=== PATIENT | male | born 1950 | race Caucasian/White ===

== ENCOUNTER 2024-11-07 13:42 | Outpatient (REF) | payer MEDICARE, SELFPAY ==
[2024-11-07 17:30] LABS: MANUAL DIFF FLAG NO
[2024-11-07 17:42] LABS: Hematocrit 37.8 % (42.0-52.0); Hemoglobin 13.0 g/dl (14.0-18.0); Imm Gran Abs Auto 0.01 X10*3/uL (0.00-0.03); Imm Gran Pct Auto 0.3 % (0.0-0.4); Lymphocytes Absolute Auto 1.3 X10*3/uL (1.2-4.9); Mean Corpuscular HGB Conc 34.4 g/dl (31.0-36.0); Mean Corpuscular Hemoglobin 33.3 pg (27.0-33.0); Mean Corpuscular Volume 96.9 fL (80.0-98.0); NRBC Abs Auto 0.000 X10*3/uL (0.0-0.012); NRBC Pct Auto 0.0 /100WBC (0.0-0.2); Platelet Count 169 X10*3/uL (160-400); Red Blood Count 3.90 X10*6/uL (4.60-5.80); White Blood Count 3.8 X10*3/uL (4.8-10.8)
[2024-11-07 18:00] LABS: Alanine Aminotransferase 69 U/L (0-40); Aspartate Amino Transferase 59 U/L (5-37); Estimated Glomerular Filt Rate > 60
[2024-11-08 04:38] LABS: HBS Num1 0.52 mIU/mL (0-7.99); HBc Num1 0.51 S/CO (0.00-0.79); HBsAGNum1 0.48 S/CO (0.00-0.99); Hepatitis B Surface Antigen Negative (Negative); ~HepC Num1 0.09 S/CO (0.00-0.79); ~Hepatitis B Surface Antibody NONREACTIVE (Nonreactive); ~Hepatitis C Antibody Nonreactive (Nonreactive)
== END 2024-11-07 13:43 | disposition home or self-care (01) ==
LOC: HO.HKASLDS 13:42
PROVIDERS: PCP Internal Medicine; Visit Provider Internal Medicine Rheumatology
DX: M06.00 Rheumatoid arthritis without rheumatoid factor, unspecified site (principal); Z51.81 Encounter for therapeutic drug level monitoring; Z11.59 Encounter for screening for other viral diseases; Z79.631 Long term (current) use of antimetabolite agent; Z79.899 Other long term (current) drug therapy; Z96.652 Presence of left artificial knee joint; Z72.89 Other problems related to lifestyle
CPT/HCPCS: 36415; 82565; 84450; 84460; 85025; 85652; 86140; 86704; 86706; 86803; 87340; 99212

== ENCOUNTER 2024-11-07 13:42 | Outpatient (AMB) | payer MEDICARE, SELFPAY ==
--- OUTSIDE RECORDS SUMMARY | 2024-05-21 05:45 | XMS_ITS ---
Author Organization [facility] Address [address] [facility] [address] [place] [address] Care Team Providers Care Internal Control Specialist Name Role Phone Bri Li Primary Care Provider BRI Lawrence Unavailable [phone] REASON FOR VISIT 4wk Encounters Encounter Location Date Provider Diagnosis [facility] [address] [facility] [address] [place] [address] 05/21/2024 BRI PAVON Plan Of Treatment Next Appt Details Provider Name:BRI PAVON, 11/14/2024 08:00:00 AM, [address] [facility] [address], [place], [address], Progress Notes * Roland REYNOLDS LDOB:1950 (73 yo M)Acc No.[id number]:05/21/2024 Progress Note Patient: Roland PARK Provider: Feng Pavon DPM :1950 A ge:73 Y S ex:Male Date:05/21/2024 Address:[address] [place] [address], [facility] Pcp:Bri Li Subjective: * Chief Complaints: * 1 . 4wk. * Medical History: Objective: * Vitals: Assessment: Plan: * Treatment: * Billing Information: * Visit Code: * Procedure Codes: * Electronic signature of INNA PAVON D.P.M on 11/07/2024 at 02:08 PM EDT Sign off status: Pending * Provider: Feng Pavon DPM Date: 0 05/21/2024 Generated for Chio robles/Denisse/Sanjana on: 0 11/07/2024 02:08 PM EDT
[2024-11-07 14:00] VITALS: BP 110/60; PULSE 61; O2SAT 96; BMI 30.3
--- NOTE | 2024-11-07 14:00 | MHC.OFFVIS ---
Vital Signs 11/07/24 14:00 Height 5 ft 10 in Weight 211 lb 3.245 oz BMI 30.3 BP 110/60 Blood Pressure Location Rt brachial Position Sitting Pulse 61 Pulse Source Pulse Oximeter Pulse Oximetry (%) 96 Oxygen Delivery Method Room Air Intake Visit Reasons: RA Intake Note: Patient presents for an RA follow up. Accompanied by: Spouse Allergies celecoxib (From Celebrex) Allergy (Mild, Verified 11/07/24 14:03) stomach burn oxycodone Allergy (Mild, Verified 11/07/24 14:03) Hallucinations rofecoxib (From Vioxx) Allergy (Mild, Verified 11/07/24 14:03) stomach burn vancomycin Allergy (Mild, Verified 11/07/24 14:03) Stomach Upset HPI HPI RA: Details: He continues to have pain but is tolerating it. Denies no new joint swelling. No recent infections. He continues to take methotrexate subcutaneous injection administered by his once weekly. He maintains about [address] regularly, which keeps him active. Physical Exam Vital Signs: Last Vital Signs Pulse 61 11/07/24 14:00 BP 110/60 11/07/24 14:00 Pulse Ox 96 11/07/24 14:00 Oxygen Delivery Method Room Air 11/07/24 14:00 BMI result Body Mass Index 30.3 Const Other: General: Comfortable CVS: RRR Respiratory: clear to auscultation bilaterally. Good respiratory effort Skin: No lesions seen MSK: No tender joints. No synovitis. Heberden nodes present. 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 Normal range of motion of upper extremities. Bilateral hip flexion and knee flexion is limited. He is able to flex his knees to 90 degrees. No ankle or MTP tenderness. Assessment & Plan Assessment & Plan (1) Rheumatoid arthritis: Comment: Controlled on monotherapy with methotrexate. Rheumatology history: Seronegative. 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 Beltran cylindrical mixer [facility]. He has been on methotrexate since 2016. HCQ 8974-5133 self discontinued. TB March 2024 negative ATC records. History of left total knee replacement. Right knee osteoarthritis failed cortisone injections, Tylenol and gel injections. History of trigger fingers affecting left hand previously treated with cortisone injections. Code(s): M06.9 - Rheumatoid arthritis, unspecified Category: Medical Plan: Labs for drug monitoring on high-risk medication ordered Continue methotrexate 20 mg once weekly subcutaneous injection Continue folic acid 1 mg daily [facility]. Creatinine has decreased in July 15, 2024 compared to April 16, 2024. He may need methotrexate dose adjustment if creatinine clearance has decreased less than 60. Return to clinic in 3 months (2) Other terminal block assembler (current) drug therapy: Code(s): Z79.899 - Other terminal block assembler (current) drug therapy Category: Medical Plan: See above Orders: Orders Complete Blood Count Auto Diff Today Z79.899 - Other senior living (current) drug therapy Creatinine Today Z79.899 - Other terminal block assembler (current) drug therapy C Reactive Protein Today Z79.899 - Other senior living (current) drug therapy Hepatitis B,C Profile Today Z79.899 - Other terminal block assembler (current) drug therapy Alanine Aminotransferase Today Z79.899 - Other terminal block assembler (current) drug therapy Aspartate Amino Transferase Today Z79.899 - Other senior living (current) drug therapy Erythrocyte Sedimentation Rate Today Z79.899 - Other senior living (current) drug therapy Coding Level of Care Code Est Pt Level 4 (26485) Complex EM visit Add On G2211 Diagnoses Rheumatoid arthritis M06.9 Other senior living (current) drug therapy Z79.899
--- OUTSIDE RECORDS SUMMARY | 2024-11-07 14:08 | XMS_ITS | Clinical Summary ---
Author Organization [facility] Address [address] [place] [address] Care Team Providers Care Rn Plastics Name Role Phone Josue Benito Primary Care Provider [phone] Allergies No known active allergies Medications sildenafiL (VIAGRA) 100 mg tablet Take 1 tablet (100 mg total) by mouth daily as needed for erectile dysfunction. 30 tablet 11 08/31/2023 Active sildenafiL (VIAGRA) 100 mg tabletIndicatio ns:Organic impotence Take 1 tablet (100 mg total) by mouth daily as needed for erectile dysfunction. 30 tablet 08/24/2023 Active hydroxychloroqu ine (PLAQUENIL) 200 mg tablet Take 200 mg by mouth once a day. Active esomeprazole (NexIUM) 40 mg capsule Take 40 mg by mouth every morning before breakfast. Active cyclobenzaprine (FLEXERIL) 10 mg tablet Take 10 mg by mouth 3 times a day as needed for muscle spasms. Active warfarin (COUMADIN) 7.5 mg tablet Take 7.5 mg by mouth daily. Active gabapentin (NEURONTIN) 100 mg capsule Take 100 mg by mouth 3 times a day. Active methotrexate (TREXALL) 2.5 mg tablet Take 2.5 mg by mouth once a week. Active atorvastatin (LIPITOR) 40 mg tablet Take 40 mg by mouth once a day. Active tadalafil (CIALIS) tablet 20 mg TAKE 1 TABLET BY MOUTH 1 HOUR BEFORE ACTIVITY NEEDED 20 tablet 5 04/02/2024 Active Active Problems No known active problems Social History Tobacco Use Types Packs/Day Years Used Date Smoking Tobacco: Never Assessed Sex and Gender Information Value Date Recorded Sex Assigned at Male 11/16/2023 9:40 AM EDT Legal Sex Male 12:14 AM EDT Gender Identity Not on file Sexual Orientation Not on file Last Filed Vital Signs Vital Sign Reading Time Taken Comments Blood Pressure - - Pulse - - Temperature - - Respiratory Rate - - Oxygen Saturation - - Inhaled Oxygen Concentration - - Weight 98.2 kg (216 lb 6.4 oz) 11/16/2023 9:49 A M EDT Height - - Body Mass Index - - Plan of Treatment Upcoming Encounters Date Type Department Care Team ([place] st Contact Info) Description 11/15/2024 9:15 AM EDT Follow-Up [facility]rology [address] [place] [address] Chris Aleman MD [address] [place] [address] Health Maintenance Due Date Last Done Comments Cologuard 1950 Colon Cancer Screening 1950 Colonoscopy 1950 FOBT / Fit Test 1950 Hepatitis C Screening 1950 Sigmoidoscopy 1950 Medicare AWV 1951 Zoster Vaccines (2 of 3) 12/28/2010 11/02/2010 COVID-19 Vaccine ( season) 2023 02/20/2023, 10/08/2021, 02/13/2021, Additional history exists RSV Vaccine (60+ years old and patients) (1 - 1-dose 75+ series) 12/25/2023 Alcohol/Substance Use Screening 03/28/2024 Depression Screening and Follow-Up 03/28/2024 Health Care Proxy Review 03/28/2024 Social Drivers of Health Annual Screening 03/28/2024 Influenza Vaccine (#1) 2024 3, 12/11/2019, 11/30/2019 DTaP,Tdap,and Td Vaccines (3 - Td or Tdap) 05/30/2033 05/31/2023, 06/10/2011 Pneumococcal Vaccine: 50+ Years Completed 05/31/2023, 08/28/2020, 06/19/2015 Hepatitis B Vaccines Aged Out No long er eligible based on patient's age to complete this topic Insurance MEDICARE [facility] Care Teams Rn Plastics Relationship Specialty Start Date End Date Josue Benito [facility] [place] [address] PCP - General Internal Medicine 11/16/23
--- OUTSIDE RECORDS SUMMARY | 2024-11-07 14:08 | XMS_ITS | Patient Health Record ---
Author Organization [facility] Address [address] [facility] [place] [address] Care Team Providers Care Printing Equipment Mechanic Apprentice Name Role Phone Can Roy MD Primary Care Provider UnavailuDy Freedman Unavailable [phone] Reason For Referral No Information Medications Medication SIG (Take, Route, Frequency, Duration) Notes Start Date End Date Status Coumadin 10.5 1 tablet Orally 5 x week; Duration: 30 day(s) Active NexIUM I.V. 40 MG as directed Intravenous Active Simvastatin 20 MG 1 tablet in the even ing Orally Once a day; Duration: 30 day(s) Active Dzzyeutlmny-ONNF-Luzohia Prod 10-325 MG as directed Orally Active Ambien CR 12.5 MG 1 tablet at bedtime as needed Orally Once a day Active Quinapril HCl 10 MG 1 tablet Orally Once a day; Duration: 30 day(s) Active Flexeril 10 MG 1 tablet Orally prn; Duration: 30 day(s) Active Vicodin 5-300 MG 1 tablet as needed O rally every 6 hrs Active Problems Problem Type SNOMED Code ICD Code Onset Dates Problem Status W/U Status Risk Notes Problem Acquired deformity of joint of big toe (disorder) (046302402) Hallux Limitus (735.8) Active confirmed Problem Hallux valgus (583494275) Hallux Valgus (735.0) Active confirmed Problem Onychomycosis (054028989) Onychomycosis (110.1) Active confirmed Problem Pain in limb (19091129) Pain in Limb (729.5) Active confirmed Plan Of Treatment Pending Test Test Name Order Date X ray : Foot, right 3V 08/03/2012 Insurance Providers Payer Name Payer Address Payer Phone Subscriber Number Group Number Insured Name Patient Relationship to Insured Coverage Start Date Coverage End Date Medicare National Govt Sv[facility] [address] [place] [address] [phone] [id number] Roland Collazo Self - patient is the insured [employer] [address] [place] [address] [phone] [id number] Roland Collazo Self - patient is the insured Medical (General) History Medical History History ICD Code back (sciatica), knee pain high blood pressure cholesterol 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
--- OUTSIDE RECORDS SUMMARY | 2024-11-07 14:08 | XMS_ITS | Clinical Summary ---
Author Organization [facility] Address [address] [place] [address] Care Team Providers Care Deckhand Sponge Boat Name Role Phone Bri Youssef Primary Care Provider [phone] Social History Tobacco Use Types Packs/Day Years Used Date Smoking Tobacco: Never Assessed Sex and Gender Information Value Date Recorded Sex Assigned at Not on file Legal Sex Male 1:22 AM EST Gender Identity Not on file Sexual Orientation Not on file Plan of Treatment Not on file Care Teams Deckhand Sponge Boat Relationship Specialty Start Date End Date Bri Youssef [address] [place] [address] PCP - General 02/04/14
--- OUTSIDE RECORDS SUMMARY | 2024-11-07 14:08 | XMS_ITS | Clinical Summary ---
Author Organization [facility] Address [address] [place] [address] Care Team Providers Care Candy Bar Attendant Name Role Phone Unavailable Primary Care Provider Unavailabl e Social History Tobacco Use Types Packs/Day Years Used Date Smoking Tobacco: Never Assessed Sex and Gender Information Value Date Recorded Sex Assigned at Not on file Legal Sex Male 6:14 PM EDT Gender Identity Not on file Sexual Orientation Not on file Plan of Treatment Health Maintenance Due Date Last Done Comments Hepatitis C Screening 1950 DTaP/Tdap/Td (1 - Tdap) 1966 Pneumococcal 50+ years (1 of 1 - PCV) 1998 Zoster (Shingrix) (1 of 2) 1998 COVID-19 Vaccine ( - 2023-2 5 season) 2023 RSV (1 - 1-dose 75+ series) 12/25/2023 Influenza (#1) 2024 Abdominal Aorta Imaging Discontinued HPV Vaccine (No Doses Required) Completed Hep A Aged Out No longer eligi ble based on patient's age to complete this topic Hep B Aged Out No longer eligi ble based on patient's age to complete this topic Hib Aged Out No longer eligi ble based on patient's age to complete this topic Meningococcal ACWY Aged Out No longer eligible based on patient's age to complete this topic Zoster (Zostavax) Discontinued
--- OUTSIDE RECORDS SUMMARY | 2024-11-07 14:08 | XMS_ITS | Clinical Summary ---
Author Organization [facility] Address [address] [address] Phone Care Team Providers Care Tool Programmer Name Role Phone Josue Benito MD Primary Care Provider [phone] Allergies Active Allergy Reactions Criticality Noted Date Comments Celecoxib Rash Low 09/23/2017 dunham stomach Rofecoxib Other (See Comments) 09/23/2017 dunham stomach Vancomycin Rash Low 09/23/2017 Medications atorvastatin (LIPITOR) 40 MG tablet Take 1 tablet by mouth every morning. 3 Active folic acid (FOLVITE) 1 MG tablet See Instructions, Take 1 tablet by mouth once daily with breakfast, # 90 tablet, Refills 3, Maintenance, 11/06/22 21:10:00 EDT, Instructions Replace Required Details, Route to Pharmacy Electronically, [id number], 184, cm, 06/29/22 13:56:00... 3 Active gabapentin (NEURONTIN) 100 MG capsule Take 200 mg by mouth 3 (three) times a day. 3 Active HYDROcodone-gracia taminophen (NORCO) 5-325 mg per tablet Take by mouth. 2 Active hydrOXYchloroQU INE (PLAQUENIL) 200 mg tablet Take 200 mg by mouth daily. Active lisinopril (PRINIVIL,ZESTR IL) 40 MG tablet Take 40 mg by mouth. 3 Active methotrexate 2.5 MG Oral tablet Take 20 mg by mouth once a week. 3 Active sildenafiL (VIAGRA) 100 mg tablet TAKE 1 TABLET BY MOUTH ONCE DAILY NEEDED FOR INTERCOURSE 3 Active tadalafiL (CIALIS, ADCIRCA) 20 MG tablet TAKE 1 TABLET BY MOUTH 1 HOUR BEFORE ACTIVITY NEEDED 3 Active coenzyme Q10 100 mg capsule Take 100 mg by mouth daily. Active warfarin (COUMADIN) 10 MG tablet Take 10 mg by mouth. 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 Reji Heard ast ATC On plaquenil and methotrexate; annual eye exam with Dr. Sanchez; updated 08/2020 Thoracic radiculitis 01/05/2023 01/05/2023 Varicose veins of legs 01/05/2023 Overview (01/05/2023): 2012 Left leg endovascular laser therapy Venous stasis 11/29/2020 01/05/2023 Right knee DJD 11/20/2020 01/05/2023 Silent aspiration 11/12/2020 01/05/2023 Overview (01/05/2023): Seen on barium swallow 09/2020; laryngeal penetration Eval with [facility], Dr. Kennedy to update EGD and colonoscopy, cine esophagram Asymmetric edema of both lower extremities 01/3001/05/2023 Overview (01/05/2023): Left>>right due to h/o DVT L>R due to DVT RAD (reactive airway disease) 05/01/2019 Overview (01/05/2023): Bronchodilator response with PFTs 03/2019 BPH (benign prostatic hyperplasia) 10/21/2017 01/05/2023 CAD (coronary artery disease) 10/21/2017 Chronic, continuous use of opioids 10/21/2017 01/05/2023 ED (erectile dysfunction) 10/21/20172022 Overview (01/05/2023): nonorganic Fatty liver 10/21/2017 01/05/2023 Overview (01/05/2023): 2010 CT abdomen GERD (gastroesophageal reflux disease) 8 01/05/2023 Insomnia 10/21/2017 01/05/2023 GLADIS (obstructive sleep apnea) 10/21/2017 Peripheral neuropathy 10/21/2017 01/05/2023 Sacral lesion 10/21/2017 01/05/2023 Overview (01/05/2023): 06/2017 CT pelvis, left with degenerative subcondral cystic change; 06/2017 MRI 1.2cm 07/13; CT pelvis, left degen subcondral cystic change. 07/13; MRI 1.2cm Tubular adenoma 10/21/2017 01/05/2023 Overview (01/05/2023): ?2014 Last colonscopy; Benign colon, no report Knee joint replacement status 10/17/2017 Overview (01/05/2023): left DDD (degenerative disc disease), lumbar 09/24/19 18 01/05/2023 Social History Tobacco Use Types Packs/Day Years Used Date Smoking Tobacco: Never Assessed Education Answer Date Recorded Are you interested in more education? Not on suki e 09/17/2022 Are you concerned about learning? Not on file 09/17/2022 No 09/17/2022 No 09/17/2022 Digital Access Answer Date Recorded No 09/17/2022 No 09/17/2022 Reliable internet access at home? Not on file 09/17/2022 Device with a working camera? Not on file Sex and Gender Information Value Date Recorded Sex Assigned at Not on file Legal Sex Male 10:43 AM EDT Gender Identity Not on file Sexual Orientation Not on file Last Filed Vital Signs Vital Sign Reading Time Taken Comments Blood Pressure 150/83 03/02/2023 10:18 AM EST Pulse 66 03/02/2023 10:18 AM EST Temperature 36.8 C (98.2 F) 03/02/2023 10:18 AM EST Respiratory Rate 12 03/02/2023 10:18 AM EST Oxygen Saturation 100% 03/02/2023 10:18 AM EST Inhaled Oxygen Concentration - - Weight 96.6 kg (213 lb) 01/06/2023 9:21 AM EDT Height 175 cm (5' 8.9 ) 01/06/2023 9:21 AM EDT Body Mass Index 31.55 01/06/2023 9:21 AM EDT Plan of Treatment Health Maintenance Due Date Last Done Comments CREATININE LEVEL 1950 POTASSIUM LEVEL 1948 COVID-19 VACCINE (#1) 1953 DEPRESSION SCREENING 1960 SMOKING Hx and SMOKELESS TOB ACCO SCREENING 1961 HEPATITIS C SCREENING 1966 PNEUMOCOCCAL VACCINES (50+ y ears) (1 of 2 - PCV) 12/25/1967 ZOSTER VACCINES (1 of 2) 12/25/1967 COLOGUARD 1993 COLONOSCOPY 1993 COLORECTAL CANCER SCREENING 1993 FIT TEST 1993 FOBT 1993 SIGMOIDOSCOPY 1993 VIRTUAL COLONOSCOPY 1993 Adult Td,Tdap Booster 06/09/2021 06/10/2011 BLOOD PRESSURE 07/08/2023 01/06/2023 RSV VACCINE (1 - 1-dose 75+ series) 12/25/2023 HEPATITIS A VACCINES Aged Out No long er eligible based on patient's age to complete this topic HIB VACCINES Aged Out No longer eligi ble based on patient's age to complete this topic MENINGOCOCCAL VACCINES (ACWY) Aged Out No longer eligible based on patient's age to complete this topic MENINGOCOCCAL VACCINES (B) Aged Out N o longer eligible based on patient's age to complete this topic Medical Devices Not on file Insurance MEDICARE PART A & B [employer] SUPPLEMENT MEDICARE PART A & B [employer] SUPPLEMENT MEDICARE PART A & B [employer] MED[employer] SUPPLEMENT MEDICARE PART A & B [facility] MEDEX SUPPLEMENT MEDICARE PART A & B [employer] SUPPLEMENT MEDICARE PART A & B [employer] MEDEX SUPPLEMENT Care Teams Tool Programmer Relationship Specialty Start Date End Date Josue Benito MD [address] [place] [id number] PCP - General Internal Medicine 08/06/22 Additional Source Comments The information contained in this document represents components of the legal health record. It is not the complete legal health record.[facility]
--- OUTSIDE RECORDS SUMMARY | 2024-11-07 14:08 | XMS_ITS ---
Author Name [facility] Organization Unknown Care Team Organization Name Specialty Phone Email Start Date End Da te [facility] Termed, PROVIDER Primary Care 02/02/202210/26
== END 2024-11-07 14:51 | disposition home or self-care (01) ==
PROVIDERS: PCP Internal Medicine; Visit Provider Internal Medicine Rheumatology
DX: M06.9 Rheumatoid arthritis, unspecified (principal); Z79.899 Other long term (current) drug therapy
CPT/HCPCS: 99214; G2211

== ENCOUNTER 2025-02-14 08:34 | Outpatient (AMB) | payer MEDICARE, SELFPAY ==
--- NOTE | 2025-02-14 08:47 | MHC.OFFVIS ---
Vital Signs 02/14/25 08:48 Height 5 ft 10 in Weight 214 lb 15.211 oz BMI 30.8 BP 140/100 H Blood Pressure Location Rt brachial Position Sitting Pulse 57 Pulse Source Pulse Oximeter Pulse Oximetry (%) 96 Oxygen Delivery Method Room Air Intake Visit Reasons: 3 months Intake Note: Patient presents for an RA follow up. Accompanied by: Daughter Allergies celecoxib (From Celebrex) Allergy (Mild, Verified 02/14/25 08:48) stomach burn oxycodone Allergy (Mild, Verified 02/14/25 08:48) Hallucinations rofecoxib (From Vioxx) Allergy (Mild, Verified 02/14/25 08:48) stomach burn vancomycin Allergy (Mild, Verified 02/14/25 08:48) Stomach Upset HPI HPI 3 months: Details: He feels well. No new joint pain or joint swelling. No recent infection. Physical Exam Vital Signs: Last Vital Signs Pulse 57 02/14/25 08:48 BP 140/100 H 02/14/25 08:48 Pulse Ox 96 02/14/25 08:48 Oxygen Delivery Method Room Air 02/14/25 08:48 BMI result Body Mass Index 30.8 Const Other: General: Comfortable CVS: RRR Respiratory: clear to auscultation bilaterally. Good respiratory effort Skin: No lesions seen MSK: No tender joints. No synovitis. Heberden nodes present. 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 Normal range of motion of upper extremities. Bilateral hip flexion and knee flexion is limited. He is able to flex his knees to 90 degrees. No ankle or MTP tenderness. Assessment & Plan Assessment & Plan (1) Rheumatoid arthritis: Comment: Controlled on monotherapy with methotrexate. He had mild transaminitis on labs from October, which resolved on December labs. He has alcohol intermittently, which I requested him to avoid due to increased risk of cirrhosis with drinking alcohol and methotrexate. Rheumatology history: Seronegative. 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 He has been on methotrexate since 2016. HCQ 1667-1052 self discontinued. TB March 2024 negative ATC records. History of left total knee replacement. Right knee osteoarthritis failed cortisone injections, Tylenol and gel injections. History of trigger fingers affecting left hand previously treated with cortisone injections. Code(s): M06.9 - Rheumatoid arthritis, unspecified Category: Medical Plan: Labs for drug monitoring on high-risk medication ordered Continue methotrexate 20 mg once weekly subcutaneous injection Continue folic acid 1 mg daily Avoid alcohol Return to clinic in 3 months (2) Other ocean transportation intermediary (current) drug therapy: Code(s): Z79.899 - Other ocean transportation intermediary (current) drug therapy Category: Medical Plan: See above Orders: Orders Complete Blood Count Auto Diff 3 Months Z79.899 - Other ocean transportation intermediary (current) drug therapy Alanine Aminotransferase 3 Months Z79.899 - Other ocean transportation intermediary (current) drug therapy Aspartate Amino Transferase 3 Months Z79.899 - Other senior care (current) drug therapy Creatinine 3 Months Z79.899 - Other ocean transportation intermediary (current) drug therapy C Reactive Protein 3 Months Z79.899 - Other ocean transportation intermediary (current) drug therapy Erythrocyte Sedimentation Rate 3 Months Z79.899 - Other senior care (current) drug therapy Medications: Changed From methotrexate sodium 20 mg (0.8 mL) subcut QWEEK 10 mL 0RF 12 weeks To methotrexate sodium Dose 17.5 mg (0.7 mL) subcut QWEEK 10 mL 0RF 12 weeks Coding Level of Care Code Est Pt Level 4 (88340) Complex EM visit Add On G2211 Diagnoses Rheumatoid arthritis M06.9 Other senior care (current) drug therapy Z79.899
[2025-02-14 08:48] VITALS: BP 140/100; PULSE 57; O2SAT 96; BMI 30.8
--- OUTSIDE RECORDS SUMMARY | 2025-02-14 09:43 | XMS_ITS | Clinical Summary ---
Author Organization [facility] Address [address] [place] [address] Care Team Providers Care Driver Material Handler Name Role Phone Josue Benito Primary Care Provider [phone] Allergies Active Allergy Reactions Criticality Noted Date Comments Celecoxib Rash 11/15/2024 Medications sildenafiL (VIAGRA) 100 mg tablet Take 1 tablet (100 mg total) by mouth daily as needed for erectile dysfunction. 30 tablet 11 08/31/2023 Active sildenafiL (VIAGRA) 100 mg tabletIndicatio ns:Organic impotence Take 1 tablet (100 mg total) by mouth daily as needed for erectile dysfunction. 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 Social History Tobacco Use Types Packs/Day Years [...] - Inhaled Oxygen Concentration - - Weight 97.1 kg (214 lb) 11/15/2024 9:16 AM EDT Height - - Body Mass Index - - Plan of Treatment Upcoming Encounters Date Type Department Care Team (Late st Contact Info) Description 11/21/2025 9:30 AM EDT Follow-Up [facility] [address] [place] [phone] Chris Aleman MD [address] [place] [phone] Health Maintenance Due Date Last Done Comments Hepatitis C Screening 1950 Medicare AWV 1951 Zoster Vaccines (2 of 3) 12/28/2010 11/02/2010 RSV Vaccine (60+ years old and patients) (1 - 1-dose 75+ series) 12/25/2023 Alcohol/Substance Use Screening 03/28/2024 Depression Screening and Follow-Up 03/28/2024 Fall Risk Screening 03/28/2024 Health Care Proxy Review 03/28/2024 Social Drivers of Health Annual Screening 03/28/2024 Influenza Vaccine (#1) 2024 , 12/07/2022, 12/11/2019, Additional history exists COVID-19 Vaccine (2024- season) 2024 01/28/2024, 02/20/2023, 10/08/2021, Additional history exists DTaP,Tdap,and Td Vaccines (3 - Td or Tdap) 05/30/2033 05/31/2023, 06/10/2011 Pneumococcal Vaccine: 50+ Years Completed 05/31/2023, 08/28/2020, 06/19/2015 Hepatitis B Vaccines Aged Out No long er eligible based on patient's age to complete this topic Procedures * Due to [place] Cor[place] law, this organization might not be sharing negative HIV tests. Procedure Name Priority Date/Time Associated Diagnosis Comments POCT URINALYSIS DIPSTICK, NON-INTERFACED Routine 11/15/2024 9:20 AM EDT BPH without obstruction/lower urinary tract symptoms from Last 3 Months Results * Due to [place] Cor[place] law, this organization might not be sharing negative HIV tests. * POCT urinalysis dipstick (11/15/2024 9:20 AM EDT) Color, UA Yellow Yellow Clarity, UA Clear Clear Glucose, UA Negative Negative mg/dL Bilirubin, UA Negative Negative Ketones, UA Negative Negative mg/dL Spec Grav, UA 1.015 1.005 - 1.030 Blood, UA Negative Negative pH, UA 6.0 5.0 - 8.5 Protein, UA Negative Negative mg/dL Urobilinogen, UA 0.2 0.2 - 1.0 E.U. /dL mg/dL Nitrite, UA Negative Negative Leukocytes, UA Negative Negative Urine 11/15/2024 9:20 AM EDT Chris Aleman MD POINT OF CARE TEST ORDERABLE S Final Result from Last 3 Months Insurance MEDICARE [facility] Care Teams Driver Material Handler Relationship Specialty Start Date End Date Josue Benito [facility] [place] [address] PCP - General Internal Medicine 11/16/23
--- OUTSIDE RECORDS SUMMARY | 2025-02-14 09:43 | XMS_ITS | Data Portability ---
Author Organization [place] - [facility], Allergy Address [address] [phone] Care Team Providers Care Student Life Dean Name Role Phone BONNIE PIKE Primary Care Provider Assessment Encounter Date Assessment Date Assessment LastModified by Organization Details LastModified Time 12/31/2024 12/31/2024 Patient's hearing is slightly decreased in the high frequencies. Reprogramming was not possible due to the age and condition of the devices. Patient is interested in a new fitting of updated technology and will return for a fitting of [employer] i90 R devices. [email or web address] Not available 12/31/2024 14:10:10 01/07/2025 01/07/2025 Programming was performed wirelessly using the maintainer sewer and waterworks's software in [facility]. We reviewed using real-ear verification and adjusting the settings to best match the patient's hearing needs in order to obtain the best outcome. Since the patient hasn't been wearing amplification, we are going to program him as if he were anew user and we will perform this measurement at our next visit. The patient's concerns about using this technology were discussed. They reported no pain or discomfort during use in the office today. We reviewed the device options and what accessories are included. Changing the wax filter was practiced. Using the engraver flatware was demonstrated. We discussed features such as bluetooth, adjusting the volume control, and the using a multimemory button for additional programs. The patient is not interested in using bluetooth or extra programsat this time but likes the volume control feature. The patient was also encouraged to utilize our drop-off servicing system in the unfortunate event that something happens to their device and/or to contact me through phone or email at their convenience. Follow up in several weeks to discuss progress and address any concerns. [email or web address] Not available 01/07/2025 11:03:46 01/28/2025 01/28/2025 The devices were programmed to optimize the patient's hearing while ensuring that the sound is as comfortable as possible. The previous settings were significantly under target. The [employer] Verifit II hearing aid analyzer was used for real-ear verification and the gain was adjusted, ensuring that speech is both audible and comfortable. The patient reported satisfaction with sound quality after the adjustment.Discu ssed long-term care and daily maintenance. The patient was encouraged to regularly wipe debris off and to avoid humidity whenever possible. Replacement of the wax filter was reviewed. The patient was encouraged to replace the filter if they suspect that something is wrong with the device. Recommend returning annually for monitoring hearing, and for the cleaning and servicing of hearing devices. Return sooner if there are any problems with the way the device sounds or operates. The patient was also encouraged to utilize our drop-off servicing system in the unfortunate event that something happens to their device and/or to contact me through phone or email at their convenience. [email or web address] Not available 01/31/2025 09:27:29 Plan of Treatment Reminders Order Date Submit Date Provider Last Modified By Organization Details Last Modified Time Details Appointments [facility] Fitting Follow Up (60) 2024 10:00A M Alen VELARDE Not available Not available Not available Lab None recorded . Referral None recorded . Procedures None recorded . Surgeries None recorded . Imaging None recorded . Medication Orders None recorded . Patient TargetsNo targets recorded. Patient InstructionsNo instructions recorded. Reason for Referral None Reported. Results Created Date Observation Date Name Description Value Unit Range Abnormal Flag Note LastModifiedBy Organization Detail LastModifiedTime 01/05/20 25 audio gram No observ ation record ed. BARCODE Not Available 2024 13:27:23 Result Notes None recorded. Problems Name Problem SNOMED Code Status Onset Date Resolution Date Notes Provider Name and Address Organization Details Recorded Time Sensorine ural hearing loss of bilateral ears 090490882 Active 2017 Sensorineu ral hearing loss, bilateral; Note: Date Diagnosed: 01/03/2018 11:33 AM (H90.3) Alen VELARDE [address] [address], [place], [phone] , [facility] - [facility] 5 09:44:55 Chronic rhinitis 59174217 Active 2018 Chronic rhinitis; Note: Date Diagnosed: 09/25/2018 10:49 AM (J31.0) Not Available [facility] 4 02:44:55 Deviated nasal septum 917339248 Active 2018 Deviated nasal septum; Note: Date Diagnosed: 09/25/2018 10:48 AM (J34.2) Not Available [facility] 4 02:44:46 Hypertrop hy of nasal turbinate s 94946572 Active 2018 Hypertroph y of nasal turbinates ; Note: Date Diagnosed: 09/25/2018 10:48 AM (J34.3) Not Available [facility] 4 02:44:48 Nasal congestio n 98931365 Active 2018 Nasal congestion ; Note: Date Diagnosed: 09/25/2018 10:43 AM (R09.81) Not Available [facility] 4 02:44:45 Snoring 31420711 Active 2018 Snoring; Note: Date Diagnosed: 10/30/2018 11:00 AM (R06.83) Not Available [facility] 4 02:44:51 Obstructi ve sleep apnea syndrome 81611327 Active 2018 Obstructiv e sleep apnea (adult) (pediatric ); Note: Date Diagnosed: 10/30/2018 11:00 AM (G47.33) Not Available [facility] 4 02:44:47 Problem Notes None recorded. Medical Equipment None Reported. Allergies Allergen ID Allergen Name Allergen Category Reaction Reaction Severity Criticality Documentation Date Start Date Code Code System Note Provider Name and Address Organization Details Recorded Time 72765 Celebrex medicatio n other Not available Not available 08/09/2023 29667 7 RxNorm React ion: unkno wn, unspe cifie d;; Not Available [facility] 4 01:00:23 54107 Vioxx medicatio n other Not available Not available 08/09/2023 21360 9 RxNorm React ion: unkno wn, unspe cifie d;; Not Available [facility] 4 01:00:23 73912 vancomyci n medicatio n other Not available Not available 08/09/2023 54857 RxNorm React ion: unkno wn, unspe cifie d;; Not Available [facility] 4 01:00:24 Medications Name Sig Start Date Stop Date Status Note LastModified by Organization Details LastModified Time atorvastat in 40 mg tablet TAKE 1 TABLET BY MOUTH ONCE DAILY active Not Available Not Available No t Available Coumadin 2.5 mg tablet 2018 active Medicatio n ID: [id number] Br and Name: Coumadin Send Method: E-Prescri bed Subs Allowed: subs OK Medica tionGener icName: Coumadin Not Available Not Available Not Available BD Alcohol Swabs 2018 active Medicatio n ID: [id number] Du ration Value: 30 Brand Name: BD Alcohol Swabs Sen d Method: E-Prescri bed Subs Allowed: subs OK Medica tionGener icName: BD Alcohol Swabs Not Available Not Available Not Available hydrocodon e 5 mg-acetami nophen 325 mg tablet 2018 active Medicatio n ID: [id number] Br and Name: hydrocodo ne-acetam inophen S end Method: E-Prescri bed Subs Allowed: subs OK Medica tionGener icName: hydrocodo ne-acetam inophen Not Available Not Available Not Available warfarin 10 mg tablet TAKE 1 TABLET BY MOUTH DAILY DIRECTED BY [facility] active Not Available Not Available No t Available Nexium 40 mg capsule,de layed release TAKE 1 CAPSULE BY MOUTH TWICE DAILY ON AN EMPTY STOMACH active Not Available Not Available No t Available simvastati n 80 mg tablet 2018 active Medicatio n ID: [id number] Du ration Value: 90 Brand Name: simvastat in Send Method: E-Prescri bed Subs Allowed: subs OK Specia l Instructi on: TAKE 1 TABLET BY MOUTH AT BEDTIME M edication GenericNa me: simvastat in Not Available Not Available Not Available methotrexa te sodium 25 mg/mL injection solution INJECT 20 MG (0.8 ML) UNDER THE SKIN ONCE WEEKLY active Not Available Not Available No t Available sildenafil 100 mg tablet TAKE 1 TABLET BY MOUTH ONCE DAILY NEEDED FOR ERECTILE DYSFUNCTI ON active Not Available Not Available No t Available quinapril 40 mg tablet 2018 active Medicatio n ID: [id number] Du ration Value: 90 Brand Name: quinapril Send Method: E-Prescri bed Subs Allowed: subs OK Specia l Instructi on: TAKE 1 TABLET BY MOUTH AT BEDTIME M edication GenericNa me: quinapril Not Available Not Available Not Available warfarin 4 mg tablet TAKE 1 TO 2 TABLETS BY MOUTH DAILY DIRECTED BY [facility] CLIN[facility] active Not Available Not Available No t Available prednisone 2.5 mg tablet 2018 active Medicatio n ID: [id number] Du ration Value: 30 Brand Name: prednison e Send Method: E-Prescri bed Subs Allowed: subs OK Specia l Instructi on: TAKE 1 TABLET BY MOUTH ONCE DAILY Med icationGe nericName : prednison e Not Available Not Available Not Available insulin syringe U-100 with needle 1 mL 28 gauge x /2 2018 active Medicatio n ID: [id number] Du ration Value: 90 Brand Name: insulin syringe-n eedle U-100 Sen d Method: E-Prescri bed Subs Allowed: subs OK Medica tionGener icName: insulin syringe-n eedle U-100 Not Available Not Available Not Available folic acid 1 mg tablet TAKE 1 TABLET BY MOUTH ONCE DAILY WITH BREAKFAST active Not Available Not Available No t Available gabapentin 100 mg capsule 2018 active Medicatio n ID: [id number] Du ration Value: 30 Brand Name: gabapenti n Send Method: E-Prescri bed Subs Allowed: subs OK Specia l Instructi on: TAKE 2 CAPSULES BY MOUTH THREE TIMES DAILY Med icationGe nericName : gabapenti n Not Available Not Available Not Available hydroxychl oroquine 200 mg tablet 2018 active Medicatio n ID: [id number] Du ration Value: 90 Brand Name: hydroxych loroquine Send Method: E-Prescri bed Subs Allowed: subs OK Specia l Instructi on: TAKE 2 TABLETS BY MOUTH ONCE DAILY Med icationGe nericName : hydroxych loroquine Not Available Not Available Not Available lisinopril 40 mg tablet TAKE 1 TABLET BY MOUTH ONCE DAILY active Not Available Not Available No t Available loratadine 10 mg tablet TAKE 1 TABLET BY MOUTH ONCE DAILY active Not Available Not Available No t Available Co Q-10 100 mg capsule 2018 active Medicatio n ID: [id number] Br and Name: Co Q-10 Send Method: E-Prescri bed Subs Allowed: subs OK Medica tionGener icName: Co Q-10 Not Available Not Available Not Available tadalafil 20 mg tablet TAKE 1 TABLET BY MOUTH 1 HOUR BEFORE ACTIVITY NEEDED active Not Available Not Available No t Available BD SafetyGlid e Tuberculin Regular Bevel 1 mL 27 x 1/2 syringe USE ONCE WEEKLY WITH METHOTREX ATE INJECTION active Not Available Not Available No t Available Fish Oil 2018 active Medicatio n ID: [id number] Br and Name: fish oil Send Method: E-Prescri bed Subs Allowed: subs OK Medica tionGener icName: fish oil Not Available Not Available Not Available multivitam in 2018 active Medicatio n ID: [id number] Br and Name: multivita min Send Method: E-Prescri bed Subs Allowed: subs OK Medica tionGener icName: multivita min Not Available Not Available Not Available Vitamin D3 50 mcg (2,000 unit) capsule 2018 active Medicatio n ID: [id number] Br and Name: Vitamin D3 Send Method: E-Prescri bed Subs Allowed: subs OK Medica tionGener icName: Vitamin D3 Not Available Not Available Not Available vitamin B12 1,000 mcg-folic acid 400 mcg sublingual lozenge 2018 active Medicatio n ID: [id number] Br and Name: vitamin F83-czrck acid Send Method: E-Prescri bed Subs Allowed: subs OK Medica tionGener icName: vitamin S03-fslqx acid Not Available Not Available Not Available Vitals None Recorded Social History None recorded. Functional Status None recorded. Mental Status None recorded. Family History Nothing Reported. Medical History No medical history recorded. Past Encounters Encounter ID Performer Location Encounter Start Date Encounter Closed Date Diagnosis/Indication Diagnosis SNOMED-CT Code Diagnosis ICD10 Code Diagnosis IMO Codes Diagnosis Note [id number] Alen VELARDE [place] 100 [facility] 100 [facility] [place] [phone] 12/31/2024 12:59:22 01/01/2025 20:25:08 Sensorineural hearing loss of bilateral ears [id number] H90.3 [id number] Alen [place] 100 [facility],[place] [address] [facility] [place] [address] 01/07/2025 08:37:13 01/08/2025 11:48:09 Sensorineural hearing loss of bilateral ears [id number] H90.3 [id number] KHOI DUNCAN Alen [place] [place] 100 [facility],[place] [address] [place] [address] 01/28/2025 11:31:09 01/29/2025 09:04:19 Sensorineural hearing loss of bilateral ears [id number] H90.3 Health Concerns Section Related Observation LastModified by Organization Detai ls LastModified Time None Recorded Concern Status LastModified by Organization Details LastModified Time None Recorded Advance Directives Directive None Recorded Payers Insurance Date Sequence Insurance Name Policy Number Policy Giron Covered Member ID Giron Member ID Guarantor Name 01/26/2025 2 [place] [id number] Roland Douglass [id number] Roland Douglass 01/26/2025 1 [place] [employer] Roland Douglass [id number] Roland Douglass Notes Date Note Type Note Provider Name and Address Organization Details Recorded Time 5 text/html Hearing Technology HistoryReported by PatientReported status of current hearing technologyFor reported condition, patient reportsdead (right). For sound quality and programming settings, patient reportsthat they are satisfied with current settings and technology. For daily use, patient reportsconsistent use of technology. Patient returned for their annual fitting of amplification to discuss their ongoing communication needs and progress with amplification. 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 Alen VELARDE [address] [facility],[address] [address], [place], [phone], [facility] - [facility] 12/31/2024 14:11:14 5 text/html Patient returned for their orientation fitting of new technology in both ears. They have used this style of device before. The patient had selected this make and model for their lifestyle and needs. Alen VELARDE [address], [phone], [facility] 01/07/2025 11:03:57 text/html Hearing Technology HistoryReported by PatientReported status of current hearing technologyFor sound quality and programming settings, patient reportsthat they would like improvements to current settings or technologybut reportsthat they would like the output to be louder. For daily use, patient reportsconsistent use of technology. For communication and hearing challenges, patient reportshearing in all situationsandhearing the television. For reported condition, patient reportsin working condition. Patient returned for a follow-up fitting. They are a longstanding user of this technology and style of device but had gone a while without wearing devices due to broken hearing aids. KHOI DUNCAN, [facility] [address] [address], [place], [phone], [facility] 01/31/2025 09:27:57
--- OUTSIDE RECORDS SUMMARY | 2025-02-14 09:43 | XMS_ITS | Continuity of Care Document ---
Author Organization [place] - [facility] Address [address] [address] Care Team Providers Care Remote Broadcast Technician Name Role Phone SHAHZAD BONNIE Primary Care Provider [phone] Assessment Encounter Date Assessment Date Assessment LastModified by Organization Details LastModified Time 01/28/2025 01/28/2025 The devices were programmed to [...] through phone or email at their convenience. [email or web address] Not available 01/31/2025 09:27:29 Plan of Treatment [...] Sensorine ural hearing loss of bilateral ears [id number] Active 2017 Sensorineu ral hearing loss, bilateral; Note: Date Diagnosed: 01/03/2018 11:33 AM (H90.3) KHOI DUNCAN, [facility] 100 [facility] 100, [facility] [place], [address] , [facility] - [facility] 5 09:44:55 Chronic rhinitis 48671541 Active 2018 Chronic rhinitis; Note: Date Diagnosed: 09/25/2018 10:49 AM (J31.0) Not Available [facility] 4 02:44:55 Deviated nasal septum 943536765 Active 2018 Deviated nasal septum; Note: Date Diagnosed: 09/25/2018 10:48 AM (J34.2) Not Available [facility] 4 02:44:46 Hypertrop hy of nasal turbinate s 87205061 Active 2018 Hypertroph y of nasal turbinates ; Note: Date Diagnosed: 09/25/2018 10:48 AM (J34.3) Not Available [facility] 4 02:44:48 Nasal congestio n 57023125 Active 2018 Nasal congestion ; Note: Date Diagnosed: 09/25/2018 10:43 AM (R09.81) Not Available [facility] 4 02:44:45 Snoring 64812128 Active 2018 Snoring; Note: Date Diagnosed: 10/30/2018 11:00 AM (R06.83) Not Available [facility] 4 02:44:51 Obstructi ve sleep apnea syndrome 42095786 Active 2018 Obstructiv e sleep apnea (adult) (pediatric ); Note: Date Diagnosed: 10/30/2018 11:00 AM (G47.33) Not Available [facility] 4 02:44:47 Problem Notes None recorded. Medical Equipment None Reported. Allergies Allergen ID Allergen Name Allergen Category Reaction Reaction Severity Criticality Documentation Date Start Date Code Code System Note Provider Name and Address Organization Details Recorded Time 41543 Celebrex medicatio n other Not available Not available 08/09/2023 13222 7 RxNorm React ion: unkno wn, unspe cifie d;; Not Available [facility] 4 01:00:23 74815 Vioxx medicatio n other Not available Not available 08/09/2023 50824 9 RxNorm React ion: unkno wn, unspe cifie d;; Not Available [facility] 4 01:00:23 97409 vancomyci n medicatio n other Not available Not available 08/09/2023 66115 RxNorm React ion: unkno wn, unspe cifie d;; Not Available [facility] 4 01:00:24 Medications Name Sig Start Date Stop Date Status Note LastModified by Organization Details LastModified Time atorvastat in 40 mg tablet TAKE 1 TABLET BY MOUTH ONCE DAILY active Not Available Not Available No t Available Coumadin 2.5 mg tablet 2018 active Medicatio n ID: [id number] Br and Name: Coumadin Send Method: E-Prescri bed Subs Allowed: subs OK Medica tionGener icName: Coumadin Not Available Not Available Not Available BD Alcohol Swabs 2018 active Medicatio n ID: [id number] Du ration Value: 30 Brand Name: BD Alcohol Swabs Sen d Method: E-Prescri bed Subs Allowed: subs OK Medica tionGener icName: BD Alcohol Swabs Not Available Not Available Not Available hydrocodon e 5 mg-acetami nophen 325 mg tablet 2018 active Medicatio n ID: [id number] Br and Name: hydrocodo ne-acetam inophen S [...] mg tablet 2018 active Medicatio n ID: [id number] Du ration Value: 90 Brand Name: simvastat [...] mg tablet 2018 active Medicatio n ID: [id number] Du ration Value: 90 Brand Name: quinapril [...] mg tablet 2018 active Medicatio n ID: [id number] Du ration Value: 30 Brand Name: prednison e Send Method: E-Prescri bed Subs Allowed: subs OK Specia l Instructi on: TAKE 1 TABLET BY MOUTH ONCE DAILY Med icationGe nericName : prednison e Not Available Not Available Not Available insulin syringe U-100 with needle 1 mL 28 gauge x 1/2 2018 active Medicatio n ID: [id number] Du ration Value: 90 Brand Name: insulin syringe-n eedle U-100 Sen d Method: E-Prescri bed Subs Allowed: subs OK Medica tionGener icName: insulin syringe-n eedle U-100 Not Available Not Available Not Available folic acid 1 mg tablet TAKE 1 TABLET BY MOUTH ONCE DAILY WITH BREAKFAST active Not Available Not Available No t Available gabapentin 100 mg capsule 2018 active Medicatio n ID: [id number] Du ration Value: 30 Brand Name: gabapenti n Send Method: E-Prescri bed Subs Allowed: subs OK Specia l Instructi on: TAKE 2 CAPSULES BY MOUTH THREE TIMES DAILY Med icationGe nericName : gabapenti n Not Available Not Available Not Available hydroxychl oroquine 200 mg tablet 2018 active Medicatio n ID: [id number] Du ration Value: 90 Brand Name: hydroxych [...] mg capsule 2018 active Medicatio n ID: [id number] Br and Name: Co Q-10 Send Method: [...] Fish Oil 2018 active Medicatio n ID: [id number] Br and Name: fish oil Send Method: E-Prescri bed Subs Allowed: subs OK Medica tionGener icName: fish oil Not Available Not Available Not Available multivitam in 2018 active Medicatio n ID: [id number] Br and Name: multivita min Send Method: E-Prescri bed Subs Allowed: subs OK Medica tionGener icName: multivita min Not Available Not Available Not Available Vitamin D3 50 mcg (2,000 unit) capsule 2018 active Medicatio n ID: [id number] Br and Name: Vitamin D3 Send Method: E-Prescri bed Subs Allowed: subs OK Medica tionGener icName: Vitamin D3 Not Available Not Available Not Available vitamin B12 1,000 mcg-folic acid 400 mcg sublingual lozenge 2018 active Medicatio n ID: [id number] Br and Name: vitamin U36-duwmy acid Send Method: E-Prescri bed Subs Allowed: subs OK [facility] icName: vitamin G47-ukovf acid Not Available Not Available Not Available Vitals None Recorded Social History None recorded. Functional Status None recorded. Mental Status None recorded. Family History Nothing Reported. Medical History No medical history recorded. Past Encounters Encounter ID Performer Location Encounter Start Date Encounter Closed Date Diagnosis/Indication Diagnosis SNOMED-CT Code Diagnosis ICD10 Code Diagnosis IMO Codes Diagnosis Note [id number] Alen [place] 100 [facility],[place] 100 [place] [address] 12/31/2024 12:59:22 01/01/2025 20:25:08 Sensorineural hearing loss of bilateral ears [id number] H90.3 [id number] Alen VELARDE [place] 100 [facility],[place] [address] [place] [address] 01/07/2025 08:37:13 01/08/2025 11:48:09 Sensorineural hearing loss of bilateral ears [id number] H90.3 [id number] Alen VELARDE [place] 100 [facility], [place] 100 [place] [address] 01/28/2025 11:31:09 01/29/2025 09:04:19 Sensorineural hearing loss of bilateral ears 391233284 H90.3 Health Concerns Section Related Observation LastModified by Organization Detai ls LastModified Time None Recorded Concern Status LastModified by Organization Details LastModified Time None Recorded Payers Encounter Date Sequence Insurance Name Policy Number Policy Giron Covered Member ID Giron Member ID Guarantor Name 01/28/2025 2 [place] [id number] Roland Douglass [id number] Roland Douglass 01/28/2025 1 [place] [employer] [employer] Roland Douglass [id number] Roland Douglass Notes Date Note Type Note Provider Name and Address Organization Details Recorded Time text/html Hearing Technology HistoryReported by PatientReported status [...] due to broken hearing aids. KHOI DUNCAN, [facility] 100 [facility],[place] [address], [place], [address], [facility] - [facility] 01/31/2025 09:27:57
--- OUTSIDE RECORDS SUMMARY | 2025-02-14 09:43 | XMS_ITS | Continuity of Care Document ---
Author Organization [place] - [facility] Address 100 [facility] 100 [place] [address] Care Team Providers Care Marketing Analytics Specialist Name Role Phone SHAHZAD, BONNIE Primary Care Provider Assessment Encounter Date Assessment Date Assessment LastModified by Organization Details LastModified Time 12/31/2024 12/31/2024 Patient's hearing is slightly decreased in the high frequencies. Reprogramming was not possible due to the age and condition of the devices. Patient is interested in a new fitting of updated technology and will return for a fitting of [id number] i90 R devices. [email or web address] Not available 12/31/2024 14:10:10 Plan of Treatment Reminders Order Date Submit [...] Sensorine ural hearing loss of bilateral ears [id number] Active 2017 Sensorineu ral hearing loss, bilateral; Note: Date Diagnosed: 01/03/2018 11:33 AM (H90.3) Alen VELARDE 100 [facility] 100, [facility] [place], [address] , [facility] - [facility] 5 09:44:55 Chronic rhinitis 34836001 Active 2018 Chronic rhinitis; Note: Date Diagnosed: 09/25/2018 10:49 AM (J31.0) Not Available [facility] 4 02:44:55 Deviated nasal septum 614420813 Active 2018 Deviated nasal septum; Note: Date Diagnosed: 09/25/2018 10:48 AM (J34.2) Not Available [facility] 4 02:44:46 Hypertrop hy of nasal turbinate s 69046493 Active 2018 Hypertroph y of nasal turbinates ; Note: Date Diagnosed: 09/25/2018 10:48 AM (J34.3) Not Available [facility] 4 02:44:48 Nasal congestio n 25185612 Active 2018 Nasal congestion ; Note: Date Diagnosed: 09/25/2018 10:43 AM (R09.81) Not Available [facility] 4 02:44:45 Snoring 50317529 Active 2018 Snoring; Note: Date Diagnosed: 10/30/2018 11:00 AM (R06.83) Not Available [facility] 4 02:44:51 Obstructi ve sleep apnea syndrome 56209516 Active 2018 Obstructiv e sleep apnea (adult) (pediatric ); Note: Date Diagnosed: 10/30/2018 11:00 AM (G47.33) Not Available [facility] 4 02:44:47 Problem Notes None recorded. Medical Equipment None Reported. Allergies Allergen ID Allergen Name Allergen Category Reaction Reaction Severity Criticality Documentation Date Start Date Code Code System Note Provider Name and Address Organization Details Recorded Time 37077 Celebrex medicatio n other Not available Not available 08/09/2023 31972 7 RxNorm React ion: unkno wn, unspe cifie d;; Not Available [facility] 4 01:00:23 22686 Vioxx medicatio n other Not available Not available 08/09/2023 31386 9 RxNorm React ion: unkno wn, unspe cifie d;; Not Available [facility] 4 01:00:23 28496 vancomyci n medicatio n other Not available Not available 08/09/2023 10440 RxNorm React ion: unkno wn, unspe cifie d;; Not Available [facility] 4 01:00:24 Medications Name Sig Start Date Stop Date Status Note LastModified by Organization Details LastModified Time atorvastat in 40 mg tablet TAKE 1 TABLET BY MOUTH ONCE DAILY active Not Available Not Available No t Available Coumadin 2.5 mg tablet 2018 active Medicatio n ID: [id number] Br and Name: Coumadin Send Method: E-Prescri bed Subs Allowed: subs OK Medica tionGener icName: Coumadin Not Available Not Available Not Available BD Alcohol Swabs 2018 active Medicatio n ID: [id number] Du ration Value: 30 Brand Name: BD Alcohol Swabs Sen d Method: E-Prescri bed Subs Allowed: subs OK Medica tionGener icName: BD Alcohol Swabs Not Available Not Available Not Available hydrocodon e 5 mg-acetami nophen 325 mg tablet 2018 active Medicatio n ID: [id number] Br and Name: hydrocodo ne-acetam inophen S [...] mg tablet 2018 active Medicatio n ID: [id number] Du ration Value: 90 Brand Name: simvastat [...] mg tablet 2018 active Medicatio n ID: [id number] Du ration Value: 90 Brand Name: quinapril [...] mg tablet 2018 active Medicatio n ID: [id number] Du ration Value: 30 Brand Name: prednison e Send Method: E-Prescri bed Subs Allowed: subs OK Specia l Instructi on: TAKE 1 TABLET BY MOUTH ONCE DAILY Med icationGe nericName : prednison e Not Available Not Available Not Available insulin syringe U-100 with needle 1 mL 28 gauge x /2 2018 active Medicatio n ID: [id number] Du ration Value: 90 Brand Name: insulin syringe-n eedle U-100 Sen d Method: E-Prescri bed Subs Allowed: subs OK Medica tionGener icName: insulin syringe-n eedle U-100 Not Available Not Available Not Available folic acid 1 mg tablet TAKE 1 TABLET BY MOUTH ONCE DAILY WITH BREAKFAST active Not Available Not Available No t Available gabapentin 100 mg capsule 2018 active Medicatio n ID: [id number] Du ration Value: 30 Brand Name: gabapenti n Send Method: E-Prescri bed Subs Allowed: subs OK Specia l Instructi on: TAKE 2 CAPSULES BY MOUTH THREE TIMES DAILY Med icationGe nericName : gabapenti n Not Available Not Available Not Available hydroxychl oroquine 200 mg tablet 2018 active Medicatio n ID: [id number] Du ration Value: 90 Brand Name: hydroxych [...] mg capsule 2018 active Medicatio n ID: [id number] Br and Name: Co Q-10 Send Method: E-Prescri bed Subs Allowed: subs OK Medica tiCarmenner icName: Co Q-10 Not Available Not Available [...] Fish Oil 2018 active Medicatio n ID: [id number] Br and Name: fish oil Send Method: E-Prescri bed Subs Allowed: subs OK Medica tionGener icName: fish oil Not Available Not Available Not Available multivitam in 2018 active Medicatio n ID: [id number] Br and Name: multivita min Send Method: E-Prescri bed Subs Allowed: subs OK Medica tionGener icName: multivita min Not Available Not Available Not Available Vitamin D3 50 mcg (2,000 unit) capsule 2018 active Medicatio n ID: [id number] Br and Name: Vitamin D3 Send Method: E-Prescri bed Subs Allowed: subs OK Medica tiCarmenner icName: Vitamin D3 Not Available Not Available Not Available vitamin B12 1,000 mcg-folic acid 400 mcg sublingual lozenge 2018 active Medicatio n ID: [id number] Br and Name: vitamin E08-jseeb acid Send Method: E-Prescri bed Subs Allowed: subs OK Medica tionGener icName: vitamin C42-kaarl acid Not Available Not Available Not Available Vitals None Recorded Social History None recorded. Functional Status None recorded. Mental Status None recorded. Family History Nothing Reported. Medical History No medical history recorded. Past Encounters Encounter ID Performer Location Encounter Start Date Encounter Closed Date Diagnosis/Indication Diagnosis SNOMED-CT Code Diagnosis ICD10 Code Diagnosis IMO Codes Diagnosis Note [id number] Alen VELARDE [place] [address] [place] [address] 12/31/2024 12:59:22 01/01/2025 20:25:08 Sensorineural hearing loss of bilateral ears 856068141 H90.3 Health Concerns Section Related Observation LastModified by Organization Detai ls LastModified Time None Recorded Concern Status LastModified by Organization Details LastModified Time None Recorded Payers Encounter Date Sequence Insurance Name Policy Number Policy Giron Covered Member ID Giron Member ID Guarantor Name 12/31/2024 2 [place] [id number] Roland Edmonds Rafat [id number] Roland Douglass 12/31/2024 1 MED[place] [facility] Roland Davisuinard [id number] Roland Douglass Notes Date Note Type Note Provider Name and Address Organization Details Recorded Time 12/31/2024 text/html Hearing Technolo gy HistoryReported by PatientReported status of current hearing [...] out of warranty and discontinued by the campus manager at this time. KHOI DUNCAN, [facility] 100 [facility],[place] [address], [place], [address], [facility] - [facility] 12/31/2024 14:11:14
--- OUTSIDE RECORDS SUMMARY | 2025-02-14 09:43 | XMS_ITS | Continuity of Care Document ---
Author Organization [place] - [facility] Address [address] [address] Care Team Providers Care Human Services Care Specialist Name Role Phone SHAHZAD BONNIE Primary Care Provider Assessment Encounter Date Assessment Date Assessment LastModified by Organization Details LastModified Time 01/07/2025 01/07/2025 Programming was performed wirelessly using the intervention specialist's software in [facility]. We reviewed using real-ear verification and adjusting [...] the wax filter was practiced. Using the parts lister was demonstrated. We discussed features such as [...] to discuss progress and address any concerns. [email or web address] Not available 01/07/2025 11:03:46 Plan of Treatment Reminders Order Date Submit [...] Sensorine ural hearing loss of bilateral ears 183200592 Active 2017 Sensorineu ral hearing loss, bilateral; Note: Date Diagnosed: 01/03/2018 11:33 AM (H90.3) KHOI DUNCAN, [address],[place] [address], [place], [address] , [facility] - [facility] 5 09:44:55 Chronic rhinitis 45041575 Active 2018 Chronic rhinitis; Note: Date Diagnosed: 09/25/2018 10:49 AM (J31.0) Not Available [facility] 4 02:44:55 Deviated nasal septum 832969679 Active 2018 Deviated nasal septum; Note: Date Diagnosed: 09/25/2018 10:48 AM (J34.2) Not Available [facility] 4 02:44:46 Hypertrop hy of nasal turbinate s 09460132 Active 2018 Hypertroph y of nasal turbinates ; Note: Date Diagnosed: 09/25/2018 10:48 AM (J34.3) Not Available [facility] 4 02:44:48 Nasal congestio n 49781077 Active 2018 Nasal congestion ; Note: Date Diagnosed: 09/25/2018 10:43 AM (R09.81) Not Available [facility] 4 02:44:45 Snoring 38250613 Active 2018 Snoring; Note: Date Diagnosed: 10/30/2018 11:00 AM (R06.83) Not Available [facility] 4 02:44:51 Obstructi ve sleep apnea syndrome 06337013 Active 2018 Obstructiv e sleep apnea (adult) (pediatric ); Note: Date Diagnosed: 10/30/2018 11:00 AM (G47.33) Not Available [facility] 4 02:44:47 Problem Notes None recorded. Medical Equipment None Reported. Allergies Allergen ID Allergen Name Allergen Category Reaction Reaction Severity Criticality Documentation Date Start Date Code Code System Note Provider Name and Address Organization Details Recorded Time 20461 Celebrex medicatio n other Not available Not available 08/09/2023 64367 7 RxNorm React ion: unkno wn, unspe cifie d;; Not Available [facility] 4 01:00:23 73171 Vioxx medicatio n other Not available Not available 08/09/2023 71159 9 RxNorm React ion: unkno wn, unspe cifie d;; Not Available [facility] 4 01:00:23 78510 vancomyci n medicatio n other Not available Not available 08/09/2023 52685 RxNorm React ion: unkno wn, unspe cifie d;; Not Available [facility] 4 01:00:24 Medications Name Sig Start Date Stop Date Status Note LastModified by Organization Details LastModified Time atorvastat in 40 mg tablet TAKE 1 TABLET BY MOUTH ONCE DAILY active Not Available Not Available No t Available Coumadin 2.5 mg tablet 2018 active Medicatio n ID: [id number] Br and Name: Coumadin Send Method: E-Prescri bed Subs Allowed: subs OK Medica tionGener icName: Coumadin Not Available Not Available Not Available BD Alcohol Swabs 2018 active Medicatio n ID: [id number] Du ration Value: 30 Brand Name: BD Alcohol Swabs Sen d Method: E-Prescri bed Subs Allowed: subs OK Medica tionGener icName: BD Alcohol Swabs Not Available Not Available Not Available hydrocodon e 5 mg-acetami nophen 325 mg tablet 2018 active Medicatio n ID: [id number] Br and Name: hydrocodo ne-acetam inophen S [...] mg tablet 2018 active Medicatio n ID: [id number] Du ration Value: 90 Brand Name: simvastat [...] mg tablet 2018 active Medicatio n ID: [id number] Du ration Value: 90 Brand Name: quinapril [...] mg tablet 2018 active Medicatio n ID: [id number] Du ration Value: 30 Brand Name: prednison e Send Method: E-Prescri bed Subs Allowed: subs OK Specia l Instructi on: TAKE 1 TABLET BY MOUTH ONCE DAILY Med icationGe nericName : prednison e Not Available Not Available Not Available insulin syringe U-100 with needle 1 mL 28 gauge x 1/2 2018 active Medicatio n ID: [id number] Du ration Value: 90 Brand Name: insulin syringe-n eedle U-100 Sen d Method: E-Prescri bed Subs Allowed: subs OK Medica tionGener icName: insulin syringe-n eedle U-100 Not Available Not Available Not Available folic acid 1 mg tablet TAKE 1 TABLET BY MOUTH ONCE DAILY WITH BREAKFAST active Not Available Not Available No t Available gabapentin 100 mg capsule 2018 active Medicatio n ID: [id number] Du ration Value: 30 Brand Name: gabapenti n Send Method: E-Prescri bed Subs Allowed: subs OK Specia l Instructi on: TAKE 2 CAPSULES BY MOUTH THREE TIMES DAILY Med icationGe nericName : gabapenti n Not Available Not Available Not Available hydroxychl oroquine 200 mg tablet 2018 active Medicatio n ID: [id number] Du ration Value: 90 Brand Name: hydroxych [...] mg capsule 2018 active Medicatio n ID: [id number] Br and Name: Co Q-10 Send Method: [...] Fish Oil 2018 active Medicatio n ID: [id number] Br and Name: fish oil Send Method: E-Prescri bed Subs Allowed: subs OK Medica tionGener icName: fish oil Not Available Not Available Not Available multivitam in 2018 active Medicatio n ID: [id number] Br and Name: multivita min Send Method: E-Prescri bed Subs Allowed: subs OK Medica tionGener icName: multivita min Not Available Not Available Not Available Vitamin D3 50 mcg (2,000 unit) capsule 2018 active Medicatio n ID: [id number] Br and Name: Vitamin D3 Send Method: E-Prescri bed Subs Allowed: subs OK Medica tionGener icName: Vitamin D3 Not Available Not Available Not Available vitamin B12 1,000 mcg-folic acid 400 mcg sublingual lozenge 2018 active Medicatio n ID: [id number] Br and Name: vitamin U02-yemea acid Send Method: E-Prescri bed Subs Allowed: subs OK [facility]: [facility] T00-nomzj acid Not Available Not Available Not Available Vitals None Recorded Social History None recorded. Functional Status None recorded. Mental Status None recorded. Family History Nothing Reported. Medical History No medical history recorded. Past Encounters Encounter ID Performer Location Encounter Start Date Encounter Closed Date Diagnosis/Indication Diagnosis SNOMED-CT Code Diagnosis ICD10 Code Diagnosis IMO Codes Diagnosis Note [id number] Alen [place]DE [place] [facility] [place] 100 [facility] [place] [address] 12/31/2024 12:59:22 01/01/2025 20:25:08 Sensorineural hearing loss of bilateral ears [id number] H90.3 [id number] Alen [place]ARDE [place] 100 [facility], [place] 100 [place] [address] 01/07/2025 08:37:13 01/08/2025 11:48:09 Sensorineural hearing loss of bilateral ears 506594825 H90.3 Health Concerns Section Related Observation LastModified by Organization Detai ls LastModified Time None Recorded Concern Status LastModified by Organization Details LastModified Time None Recorded Payers Encounter Date Sequence Insurance Name Policy Number Policy Giron Covered Member ID Giron Member ID Guarantor Name 01/07/2025 2 [place] [id number] Roland Douglass [id number] Roland Douglass 01/07/2025 1 [place] [employer] [employer] Roland Douglass [id number] Roland Douglass Notes Date Note Type Note Provider Name and Address Organization Details Recorded Time 01/07/2025 text/html Patient returned for their orientation fitting of new technology in both ears. They have used this style of device before. The patient had selected this make and model for their lifestyle and needs. Alen VELARDE 100 [facility],[address], [address], [facility] - [facility] 01/07/2025 11:03:57
== END 2025-02-14 09:38 | disposition home or self-care (01) ==
LOC: HO.RHES 08:34
PROVIDERS: PCP Internal Medicine; Visit Provider Internal Medicine Rheumatology
DX: M06.9 Rheumatoid arthritis, unspecified (principal); Z79.899 Other long term (current) drug therapy
CPT/HCPCS: 99214; G2211

== ENCOUNTER → 2025-02-14 08:34 | Outpatient (BNVA) | payer MEDICARE, SELFPAY | PROVIDERS: PCP Internal Medicine; Visit Provider Internal Medicine Rheumatology | DX: M06.00 Rheumatoid arthritis without rheumatoid factor, unspecified site (principal); Z96.652 Presence of left artificial knee joint; Z79.899 Other long term (current) drug therapy | CPT/HCPCS: 99212 ==